=== PATIENT | female | born 1965 | race African-American/Black ===

== ENCOUNTER 2020-07-04 13:20 | Emergency (ER) | payer MEDICAID ==
[~2020-07-04] VITALS: Ht 172.7 cm; Wt 100.0 kg
[2020-07-04] MEDS ORDERED: HYDROCODONE/ACETAMINOPHEN 5/325MG TABLET PO ONE (14:30)
[2020-07-04] MEDS ORDERED: NAPROXEN 250MG TABLET PO ONE (14:30)
[2020-07-04 14:35] VITALS: BP 132/87
== END 2020-07-04 14:55 | disposition home or self-care (01) ==
LOC: ER 13:32
DX: F41.9 Anxiety disorder, unspecified (principal)
CPT/HCPCS: 93005; 99283